=== PATIENT | female | born 1985 | race Caucasian/White ===

== ENCOUNTER 2017-03-24 08:03 | Emergency (ER) | payer BC ==
[~2017-03-24] VITALS: Ht 165.1 cm; Wt 55.0 kg
[2017-03-24 08:13] VITALS: BP 107/63; PULSE 67; RESP 20; TEMP 98.2; O2SAT 99
[2017-03-24] MEDS ORDERED: SODIUM CHLOR 0.9% 1000 ML INJ 1,000 ML IV ONE (08:22)
[2017-03-24] MEDS ORDERED: LIDOCAINE 2%/EPINEPHrine 1:100,000 30ML MDV INFIL ONE (08:30)
[2017-03-24] MEDS ORDERED: SODIUM CHLORIDE 0.9% FLUSH 10 ML FLUSH IVF PRN (08:30)
[2017-03-24] MEDS ORDERED: TETANUS/DIPHTHERIA TOXOID ADULT 0.5 ML VIAL IM ONE (08:30)
--- NOTE | 2017-03-24 08:34 | PD ---
HPI . Syncope Chief Complaint: Syncope/Near-Syncope Time Seen by Provider: 08:22 Travel History International Travel<30 days: No Contact w/Intl Traveler<30days: No Traveled to known affect area: No History of Present Illness HPI This patient presents via [facility] status post a syncopal episode at home. She states she had gotten up to go to the bathroom have a bowel movement when she suddenly became very dizzy. She states that the next thing that she knew she was on the floor. She reports some associated shortness of breath and tingling in her fingers and toes. She denies chest pain. She is complaining with some head and neck pain which she rates 3/10. She does not know the date of her last tetanus shot. PFSH Past Medical History ?: Not LMP: 3 weeks ago Past Surgical History Appendectomy: Yes Social History Alcohol Use: No Tobacco Use: No Substance Use: No Allergies-Medications (Allergen,Severity, Reaction): Coded Allergies: No Known Allergies (Unverified , 03/24/17) Review of Systems Except as stated in HPI: all other systems reviewed are Neg General / Constitutional: No: Fever, Chills Eyes: No: Blurred Vision HENT: Positive: Headaches, Lightheadedness Cardiovascular: No: Chest Pain or Discomfort Respiratory: Positive: Shortness of Breath Gastrointestinal: No: Nausea, Vomiting, Diarrhea Genitourinary: No: Urgency, Frequency, Dysuria Neurologic: Positive: Dizziness, Syncope, Headache, Paresthesia, No: Focal Abnormalities, Slurred Speech, Incontinence, Seizures Physical Exam Narrative GENERAL: Patient is awake and alert and in no acute distress. SKIN: Warm and dry. She has about a 3 cm long laceration in the left eyebrow. HEAD: Normocephalic. EYES: Pupils equal and round. Extraocular movements are intact. ENT: No nasal bleeding or discharge. Mucous membranes pink and moist. NECK: Trachea midline. C-spine is immobilized. CARDIOVASCULAR: Regular rate and rhythm. Heart sounds are normal. RESPIRATORY: No accessory muscle use. Lungs are clear with full air movement throughout. GASTROINTESTINAL: Abdomen soft, non-tender, nondistended. MUSCULOSKELETAL: No obvious deformities. No edema. NEUROLOGICAL: Awake and alert. No obvious cranial nerve deficits. Motor grossly within normal limits. Normal speech. PSYCHIATRIC: Appropriate mood and affect; insight and judgment normal. Data Data Last Documented VS Vital Signs Date Time Temp Pulse Resp B/P Pulse Ox O2 Delivery O2 Flow Rate FiO2 03/24/17 11:06 75 20 112/68 03/24/17 08:45 100 03/24/17 08:13 98.2 Orders Electrocardiogram (03/24/17 08:22) Basic Metabolic Panel (Bmp) (03/24/17 08:22) Ed Urine Pregnancytest Poc (03/24/17 08:22) Complete Blood Count With Diff (03/24/17 08:22) Magnesium (Mg) (03/24/17 08:22) Ct Brain W/O Iv Contrast(Rout) (03/24/17 08:22) Ct Cerv Spine W/O Contrast (03/24/17 08:22) Ecg Monitoring (03/24/17 08:22) Iv Access Insert/Monitor (03/24/17 08:22) Oximetry (03/24/17 08:22) Sodium Chloride 0.9% Flush (Ns Flush) (03/24/17 08:30) Sodium Chlor 0.9% 1000 Ml Inj (Ns 1000 M (03/24/17 08:22) Tetanus/Diphtheria Tox Adult (Tetanus/Di (03/24/17 08:30) Lidocai-Epi 2%-1:100,000 Inj (Xylocaine- (03/24/17 08:30) Morphine Inj (Morphine Inj) (03/24/17 09:15) Ondansetron Inj (Zofran Inj) (03/24/17 09:15) Ondansetron Inj (Zofran Inj) (03/24/17 11:15) Labs Laboratory Tests Test 03/24/17 03/24/17 08:19 08:26 White Blood Count 12.3 TH/MM3 Red Blood Count 3.91 MIL/MM3 Hemoglobin 12.0 GM/DL Hematocrit 35.9 % Mean Corpuscular Volume 91.8 FL Mean Corpuscular Hemoglobin 30.6 PG Mean Corpuscular Hemoglobin 33.3 % Concent Red Cell Distribution Width 12.9 % Platelet Count 196 TH/MM3 Mean Platelet Volume 7.1 FL Neutrophils (%) (Auto) 84.8 % Lymphocytes (%) (Auto) 7.0 % Monocytes (%) (Auto) 6.9 % Eosinophils (%) (Auto) 1.0 % Basophils (%) (Auto) 0.3 % Neutrophils # (Auto) 10.4 TH/MM3 Lymphocytes # (Auto) 0.9 TH/MM3 Monocytes # (Auto) 0.8 TH/MM3 Eosinophils # (Auto) 0.1 TH/MM3 Basophils # (Auto) 0.0 TH/MM3 CBC Comment DIFF FINAL Differential Comment Sodium Level 138 MEQ/L Potassium Level 3.9 MEQ/L Chloride Level 107 MEQ/L Carbon Dioxide Level 24.4 MEQ/L Anion Gap 7 MEQ/L Blood Urea Nitrogen 20 MG/DL Creatinine 0.62 MG/DL Estimat Glomerular Filtration 112 ML/MIN Rate Random Glucose 77 MG/DL Calcium Level 8.2 MG/DL Magnesium Level 1.7 MG/DL MDM Medical Decision Making Medical Screen Exam Complete: Yes Emergency Medical Condition: Yes Interpretation(s) EKG shows a normal sinus rhythm with no acute ischemic change. Differential Diagnosis My differential diagnosis of syncope includes but is not limited to cardiac arrhythmia, hypovolemia, anemia, neurological catastrophe, vasovagal response Narrative Course This patient presents status post a syncopal episode at home. I suspect a vasovagal event. It also sounds that she may have hyperventilated. Nonetheless , she does have a laceration in the left eyebrow which needs to be repaired. She does not know the date of her last tetanus shot so that will be updated. CBC Diagram 03/24/17 08:19 BMP Diagram 03/24/17 08:[address] 03/24/17821 Signed Impressions: Service Date/Time: Friday, March 24, 2017 09:33 - CONCLUSION: Normal examination. Barrie Lang MD Cervical Spine CT 03/24/17821 Signed Impressions: Service Date/Time: Friday, March 24, 2017 09:34 - CONCLUSION: Normal examination. Barrie Lang MD Procedures Procedure Narrative LACERATION LOCATION: Left eyebrow LENGTH: 5 NUMBER OF STITCHES/KINGS: 10 skin sutures, 5 subcutaneous sutures REPAIR: The area of the laceration was prepped with Betadine and sterilely draped. The laceration was infiltrated with 2% lidocaine with epi. The wound was copiously irrigated and explored without evidence of foreign body, tendon injury or neurovascular injury. The wound was closed using 3-0 chromic and 6-0 Prolene. This was a 2 layer repair. A sterile dressing was applied. The patient was advised to keep the dressing clean and dry. Patient tolerated the procedure well. Diagnosis Primary Impression: Syncope Qualified Code: R55 - Vasovagal syncope Additional Impression: Eyebrow laceration Qualified Code: S01.112A - Eyebrow laceration, left, initial encounter Patient Instructions: Facial Laceration (ED), General Instructions, Syncope (DC ) Additional Instructions: Clean the wound twice daily with soap and water. Apply a thin layer of Neosporin ointment after you wash it. See your doctor in 5 days for suture removal. Seek care sooner for redness, drainage, warmth, unusual pain. Disposition: 01 DISCHARGE HOME Condition: Stable Amy Tracy MD Mar 24, 2017 08:33
[2017-03-24 08:45] VITALS: O2SAT 100
[2017-03-24 08:57] LABS: AUTOMATED NEUTROPHIL # 10.4 TH/MM3 (1.8-7.7); BASOPHIL % 0.3 % (0.0-2.0); EOSINOPHIL # 0.1 TH/MM3 (0-0.4); HEMATOCRIT 35.9 % (35.0-46.0); HEMO FLAGS DIFF FINAL; LYMPHOCYTE # 0.9 TH/MM3 (1.0-4.8); MEAN CELL VOLUME 91.8 FL (80.0-100.0); MEAN CORPUSCULAR HEMOGLOBIN 30.6 PG (27.0-34.0); MEAN CORPUSCULAR HGB CONC 33.3 % (32.0-36.0); MONO % 6.9 % (0.0-8.0); NEUT % 84.8 % (16.0-70.0); PLATELET COUNT 196 TH/MM3 (150-450); RED BLOOD COUNT 3.91 MIL/MM3 (4.00-5.30); RED CELL DISTRIBUTION WIDTH 12.9 % (11.6-17.2); WHITE BLOOD COUNT 12.3 TH/MM3 (4.0-11.0)
[2017-03-24] MEDS ORDERED: MORPHINE SULFATE 4 MG/ML INJ IV PUSH ONE (09:15)
[2017-03-24] MEDS ORDERED: ONDANSETRON HCL 4 MG/2 ML VIAL IV PUSH ONE ×2 (09:15→11:15)
[2017-03-24 09:24] LABS: BICARBONATE 24.4 MEQ/L (21.0-32.0); MAGNESIUM 1.7 MG/DL (1.5-2.5); POTASSIUM 3.9 MEQ/L (3.5-5.1)
--- NOTE | 2017-03-24 09:56 | RADRPT ---
EXAM DATE/TIME: 03/24/2017 09:33 [facility] COMPARISON: No previous studies available for comparison. INDICATIONS : Dizziness; fall, laceration left eye. RADIATION DOSE: 56.35 CTDIvol (mGy) MEDICAL HISTORY : None SURGICAL HISTORY : Appendectomy. ENCOUNTER: Initial ACUITY: 1 day PAIN SCALE: 5/10 LOCATION: cranial TECHNIQUE: Multiple contiguous axial images were obtained of the head. Using automated exposure control and adj ustment of the mA and/or kV according to patient size, radiation dose was kept as low as reasonably a chievable to obtain optimal diagnostic quality images. DICOM format image data is available electro nically for review and comparison. FINDINGS: CEREBRUM: The ventricles are normal for age. No evidence of midline shift, mass lesion, hemorrhage or acute in farction. No extra-axial fluid collections are seen. POSTERIOR FOSSA: The cerebellum and brainstem are intact. The 4th ventricle is midline. The cerebellopontine angle i s unremarkable. EXTRACRANIAL: The visualized portion of the orbits is intact. SKULL: The calvaria is intact. No evidence of skull fracture. CONCLUSION: Normal examination. Barrie Lang MD on March 24, 2017 at 9:54 Board Certified Radiologist. This report was verified electronically.
--- NOTE | 2017-03-24 10:06 | RADRPT ---
EXAM DATE/TIME: 03/24/2017 09:34 [facility] COMPARISON: No previous studies available for comparison. INDICATIONS : Dizziness; fall, Laceration left eye. RADIATION DOSE: 29.29 CTDIvol (mGy) MEDICAL HISTORY : None SURGICAL HISTORY : Appendectomy. ENCOUNTER: Initial ACUITY: 1 day PAIN SCALE: 5/10 LOCATION: Bilateral neck TECHNIQUE: Volumetric scanning of the cervical spine was performed. Multiplanar reconstructions in the sagittal, coronal and oblique axial planes were performed. Using automated exposure control and adjustment o f the mA and/or kV according to patient size, radiation dose was kept as low as reasonably achievable to obtain optimal diagnostic quality images. DICOM format image data is available electronically f or review and comparison. FINDINGS: VERTEBRAE: Normal vertebral body height. ALIGNMENT: No evidence of subluxation. C2-C3: The bony spinal canal is normal in size. No evidence of disc bulge or herniation. The neural forami na are bilaterally patent. C3-C4: The bony spinal canal is normal in size. No evidence of disc bulge or herniation. The neural forami na are bilaterally patent. C4-C5: The bony spinal canal is normal in size. No evidence of disc bulge or herniation. The neural forami na are bilaterally patent. C5-C6: The bony spinal canal is normal in size. No evidence of disc bulge or herniation. The neural forami na are bilaterally patent. C6-C7: The bony spinal canal is normal in size. No evidence of disc bulge or herniation. The neural forami na are bilaterally patent. C7-T1: The bony spinal canal is normal in size. No evidence of disc bulge or herniation. The neural forami na are bilaterally patent. CONCLUSION: Normal examination. Barrie Lang MD on March 24, 2017 at 10:04 Board Certified Radiologist. This report was verified electronically.
[2017-03-24 11:06] VITALS: BP 112/68; PULSE 75; RESP 20
--- NOTE | 2017-03-24 15:20 | EKG ---
Date Performed: 03/24/2017 Time Performed: 08:39:19 PTAGE: 32 years EKG: Sinus rhythm WITH SINUS ARRHYTHMIA NORMAL ECG NO PREVIOUS TRACING DOCTOR: Javad Tuttle Interpretating Date/Time 03/24/2017 15:18:56
== END 2017-03-24 12:47 | disposition home or self-care (01) ==
LOC: NEPC 08:03
DX: R55 Syncope and collapse (principal); S01.112A Laceration without foreign body of left eyelid and periocular area, initial encounter; W19.XXXA Unspecified fall, initial encounter
CPT/HCPCS: 12052; 70450; 72125; 80048; 83735; 84703; 85025; 90471; 90714; 93005; 96361; 96374; 96375; 96376; 99285; J2270; J2405; J7030